=== PATIENT | male | born 1990 | race Hispanic/Latino ===

== ENCOUNTER 2023-12-29 02:09 | Emergency (ER) | payer SELFPAY ==
[2023-12-29 02:14] VITALS: BP 144/100
--- NOTE | 2023-12-29 02:32 | ED.GENMED ---
History of Present Illness
<JUDY Mckeon - Last Filed: 12/29/23 06:46>
General
Chief Complaint: Abdominal Symptoms
Time Seen by Provider: 12/29/23 02:24
Travel History
Have you had any contact with someone who has COVID-19?: No
Do you have any symptoms of coronavirus? Fever > 100 degrees, chills, cough, shortness of breath, sore throat, loss of taste or smell, muscle aches, or headache?: No
History of Present Illness
History of Present Illness:
Pt is a 33 year old male with a PMHx of diabetes, gastroenteritis, GERD, pancreatitis, and alcohol abuse presenting with chest and abdominal pain x 3 days. He states he has tried taking fentanyl with vodka for the pain but nothing has helped. He
states the pain is constant and radiates to his back. He rates the pain as severe saying he has never felt pain like this before. He reports mild SOB and states his feet are also feel very painful. He reports dizziness. He reports chills and
diaphoresis but denies feeling hot or cold. He states he does not have an appetite and only had a small cup of rice yesterday. He notes he was able to get sober for 6-7 months but then started drinking again. He reports he does not know how much he
has been drinking daily and he does not remember how much he has had last night. He reports his last drink was around 11 pm. He denies fever, headache, palpitations, or seizures.
Past History
<JUDY Mckeon - Last Filed: 12/29/23 06:46>
Past History
ED Past Medical History: Psychiatric and Other (Alcohol abuse, chronic pancreatitis)
ED Past Surgical History: None
Patient has exhibited threatening behavior?: No
Social History
Tobacco: Smoker
Alcohol: Chronic alcoholic
Drug: None
Personal: Single
Living: with roommate
Employment: Not employed
Family History
Family History: Unable to obtain
Review of Systems
<JUDY Mckeon - Last Filed: 12/29/23 06:46>
Review of Systems
Constitutional: Reports weight loss, fatigue and chills
EENT: Reports no symptoms
Respiratory: Reports trouble breathing (reports mild SOB)
Cardiac: Reports chest pain and diaphoresis
ABD/GI: Reports abdominal pain and anorexia
: Reports no symptoms
Musculoskeletal: Reports joint pain
Skin: Reports other (erythematous and purple coloration of hands, warm erythematous feet with TTP. )
Neurological: Reports dizzy
Endocrine: Reports no symptoms
Hematologic/Lymphatic: Reports no symptoms
Psychiatric: Reports no symptoms
Phy Exam
<JUDY Mckeon - Last Filed: 12/29/23 06:46>
General Physical Exam
General Presentation: moderate distress
General age: appears stated age
General Skin: warm, dry and feels hot (hands and feet)
General Habitus: frail
General Mental: appears intoxicated
General Hydration: dry mucous membranes
ENT Exam
ENT Exam: other (bilateral nystagmus)
Eye Exam
Eye Exam: PERRL
Cardiovascular Exam
Cardiovascular Exam: no edema, no murmur, normal peripheral pulses and tachycardia
Pulmonary Exam
Pulmonary Exam: lungs clear, no respiratory distress, no rales, no crackles, no rhonchi, no wheezing and no cough
Gastrointestinal Exam
Gastrointestinal Exam: normal bowel sounds, soft, non distended, guarding and tender
Palpation: generalized: Moderate tenderness
Liver Exam: other (no asterixis noted)
Neurological Exam
Neurological Exam: appears intoxicated
Musculoskeletal Exam
Musculoskeletal Exam: back pain (mild TTP)
Skin Exam
Skin Exam: redness (hands and feet) and warmth (feet )
Psychiatric Exam
Psychiatric Exam: anxious
Course
<JUDY Mckeon - Last Filed: 12/29/23 06:46>
Orders/Labs/Results
Orders:
Orders
12/29/23 03:10
Urinalysis Reflex To Culture Urgent
12/29/23 03:21
CBC/With Diff [Complete Blood Count/With Diff] Urgent
CMP [Comprehensive Metabolic Panel] Urgent
Lipase Urgent
Abnormal Lab Results
12/29/23
03:21
Absolute Lymphs (auto) 0.7 L 10^3/uL
(1.2-3.4)
Neutrophils % 78.9 H %
(42.2-75.2)
Lymphocytes % 13.8 L %
(20.5-51.1)
Sodium 134 L mmol/L
(135-145)
Chloride 97 L mmol/L
(98-107)
Carbon Dioxide 20 L mmol/L
(22-30)
Creatinine 0.4 L mg/dL
(0.7-1.3)
Glucose 401 H mg/dl
(70-99)
12/29/23 03:21
12/29/23 03:21
Vital Signs
Initial and Last Documented VS:
Initial Vital Signs
Temp Pulse Resp BP Pulse Ox
97.8 F 128 24 144/100 98
12/29/23 02:14 12/29/23 02:14 12/29/23 02:14 12/29/23 02:14 12/29/23 02:14
Last Documented Vital Signs
Temp Pulse Resp BP Pulse Ox
97.8 F 97 16 111/83 98
12/29/23 02:14 12/29/23 05:54 12/29/23 05:54 12/29/23 06:00 12/29/23 06:30
<George Hampton DO - Last Filed: 12/29/23 06:45>
Orders/Labs/Results
Orders:
Orders
12/29/23 03:10
Urinalysis Reflex To Culture Urgent
12/29/23 03:21
CBC/With Diff [Complete Blood Count/With Diff] Urgent
CMP [Comprehensive Metabolic Panel] Urgent
Lipase Urgent
Abnormal Lab Results
12/29/23
03:21
Absolute Lymphs (auto) 0.7 L 10^3/uL
(1.2-3.4)
Neutrophils % 78.9 H %
(42.2-75.2)
Lymphocytes % 13.8 L %
(20.5-51.1)
Sodium 134 L mmol/L
(135-145)
Chloride 97 L mmol/L
(98-107)
Carbon Dioxide 20 L mmol/L
(22-30)
Creatinine 0.4 L mg/dL
(0.7-1.3)
Glucose 401 H mg/dl
(70-99)
12/29/23 03:21
12/29/23 03:21
Vital Signs
Initial and Last Documented VS:
Initial Vital Signs
Temp Pulse Resp BP Pulse Ox
97.8 F 128 24 144/100 98
12/29/23 02:14 12/29/23 02:14 12/29/23 02:14 12/29/23 02:14 12/29/23 02:14
Last Documented Vital Signs
Temp Pulse Resp BP Pulse Ox
97.8 F 97 16 111/83 98
12/29/23 02:14 12/29/23 05:54 12/29/23 05:54 12/29/23 06:00 12/29/23 06:30
<JUDY Mckeon - Last Filed: 12/29/23 06:46>
MDM/Problems Addressed
Differential Diagnosis Includes:
alcohol induced gastritis, Wernicke's encephalopathy, alcohol intoxication, pancreatitis, endocarditis
MDM/Problems Addressed:
Chest and abdominal pain
Chronic conditions affecting care: DM
<JUDY Mckeon - Last Filed: 12/29/23 06:46>
*Critical Care Note
Total Time (30-74mins, 75-104mins- exclusive of procedures): Not Applicable
<JUDY Mckeon - Last Filed: 12/29/23 06:46>
Update Note
Update Note:
0430 - Pt states he is feeling better and reports his abdominal pain has improved. [place]
0630 - Spoke with patient who agreed to discharge at this time. [place]
ED Attending Note
<JUDY Mckeon - Last Filed: 12/29/23 06:46>
-
Portions of this chart may have been created with voice recognition software.� Occasional wrong word or��sound alike� substitutions may have occurred due to the inherent limitations of voice recognition software.
<George Hampton DO - Last Filed: 12/29/23 06:45>
ED Attending Note
Patient seen and examined by attending physician: Yes
I performed the substantive portion of visit, reviewed & personally made and approve the management plan that is documented in note by myself or OLGA.: Yes
ED Attending Note:
33-year-old male presents with chest and abdominal pain that is been present for the last 3 days. Patient is a chronic alcoholic and tried taking vodka and fentanyl for the pain. Patient reports some shortness of breath. States his hands and feet
are painful. Patient was seen in conjunction with the PA student. I have reviewed and agree with the history and treatment plan presented. On my independent physical exam, patient is awake, alert, and oriented x3, lying on the bed. Heart is
regular rate and rhythm. Lungs clear to auscultation bilateral without wheezes rales or rhonchi present.
Discharge Plan
Departure
Patient Disposition: Home (Routine Discharge)
Date of Disposition: 12/29/23
Time of Disposition: 06:43
Patient with high blood pressure during this ER visit?: No
Condition: Good
Discharge Problem:
Alcohol abuse, Abdominal pain
Instructions: Alcohol use - when is drinking a problem?, Alcohol Use Disorder (DC), Abdominal Pain
Prescriptions:
No Action
acetaminophen [Tylenol] 325 mg Tablet
650 mg PO Q4HPRN PRN (Reason: mild pain)
thiamine HCl (vitamin B1) 100 mg tablet
100 mg PO DAILY
baclofen 10 mg tablet
20 mg PO TID
pantoprazole 40 mg tablet,delayed release (DR/EC)
40 mg PO DAILY
gabapentin 300 mg capsule
600 mg PO TID
Referrals:
[facility] [Outside]
[facility] [Outside]
NONE,* [Family Provider] -
Activity Restrictions/Additional Instructions:
It was a pleasure meeting you and taking part in your care. We hope for your continued healing and wellness.
Please read discharge instructions in their entirety. However, they are for general education and may not describe your exact diagnosis at discharge. Information on your ER visit and medical conditions were discussed with you along with appropriate
follow up information...
If indicated, please take your medications as instructed and indicated on discharge paperwork.
Please schedule a follow up appointment as directed. Call to schedule an appointment
Please return to the emergency department with ANY change in, persisting, or worsening of symptoms. If any of your symptoms do not improve, or persist, or become more severe within 6-12 hours, please return to the emergency department for further
care.
Please return to the emergency department if you develop a headache, neck pain/stiffness, fever greater than 100.4F, chest pain, shortness of breath, persistent nausea, vomiting, slurred speech, difficulty walking, numbness/tingling, weakness, signs
of infection or any other symptoms that are worrisome to you.
If you have any questions or concerns please do not hesitate to call the Hospital at
Interventions
Interventions:
*Risk Screen - Suicide Last Done: 12/29/23 02:14
*General Assessment Last Done: 12/29/23 02:14
*Neglect/Abuse Screening Last Done: 12/29/23 02:14
ED- Fall Risk Assessment Last Done: 12/29/23 02:14
*ED COVID-19 Vaccine History Last Done: 12/29/23 02:14
VL-Etnmah-Aetsxzcvkp Assessment Last Done: 12/29/23 03:23
Discharge Date and Time
Print Language: CAMBODIAN
[2023-12-29 03:23] VITALS: BMI 19.4
[2023-12-29 03:26] LABS: % Eosinophils 0.6 % (0-6); % Immature Granulocytes 0.2 % (0-0.5); % Lymphocytes 13.8 % (20.5-51.1); % Monocytes 5.5 % (1.7-9.3); % Neutrophils 78.9 % (42.2-75.2); Absolute Basophils 0.1 10^3/uL (0-0.2); Absolute Lymphocytes 0.7 10^3/uL (1.2-3.4); Absolute Monocytes 0.3 10^3/uL (0.1-0.6); Hematocrit 40.4 % (39.0-52.0); Hemoglobin 14.2 g/dL (13.0-18.0); Mean Corp Hgb Conc. 35.1 g/dL (33.0-37.0); Mean Corpuscular Hgb 28.5 pg (27.0-31.0); Mean Corpuscular Volume 81.1 fL (80.0-94.0); Mean Platelet Volume 9.6 fL (7.4-10.4); Nucleated Red Blood Cells % 0 % (-); Platelet Count 186 10^3/uL (130-400); Red Blood Cell Count 4.98 10^6/uL (4.70-6.10); Red Cell Dist. Width 13.5 % (11.5-14.5); White Blood Cell Count 5.1 10^3/uL (4.8-10.8)
[2023-12-29 03:48] LABS: ALT (SGPT) 36 U/L (0-50); AST (SGOT) 35 U/L (17-59); Albumin 4.9 g/dl (3.5-5.0); Alkaline Phosphatase 112 U/L (38-126); Blood Urea Nitrogen 14 mg/dl (9-20); Calcium 9.8 mg/dl (8.4-10.2); Carbon Dioxide 20 mmol/L (22-30); Chloride 97 mmol/L (98-107); Estimated Creatinine Clearance 124 ml/min; Glucose 401 mg/dl (70-99); Potassium 3.8 mmol/L (3.5-5.1); Sodium 134 mmol/L (135-145); Total Bilirubin 0.7 mg/dl (0.2-1.3); Total Protein 7.5 g/dl (6.3-8.2); eGFR > 60.00
[2023-12-29 03:58] LABS: Lipase 43 U/L (23-300)
[2023-12-29 05:54] VITALS: BP 103/79
[2023-12-29 06:00] VITALS: BP 111/83
== END 2023-12-29 06:53 | disposition home or self-care (01) ==
LOC: EMR 02:09
PROVIDERS: EMERGENCY PHYSICIAN Student in an Organized Health Care Education/Training Program
DX: F10.129 Alcohol abuse with intoxication, unspecified (principal); R10.9 Unspecified abdominal pain; E11.9 Type 2 diabetes mellitus without complications; E51.2 Wernicke's encephalopathy; F17.200 Nicotine dependence, unspecified, uncomplicated; K21.9 Gastro-esophageal reflux disease without esophagitis; Z87.19 Personal history of other diseases of the digestive system
CPT/HCPCS: 99283; 80053; 83690; 85025